=== PATIENT | female | born 1945 | race Caucasian/White ===

== ENCOUNTER 2017-09-03 17:02 | Inpatient (IN) ==
[2017-09-03] MEDS ORDERED: ONDANSETRON 4 MG/2 ML VIAL IV STA (18:25)
[2017-09-03] MEDS ORDERED: HYDROmorphone 2 MG/1 ML VIAL IV STA (18:25)
[2017-09-03] MEDS ORDERED: SODIUM CHLORIDE 0.9% 1,000 ML IV STA (18:25)
[2017-09-03 18:44] LABS: Basophils % 0.3 % (0.0-0.8); Hematocrit 43.3 VOL% (35.7-47.0); Immature Granulocytes % 0.4 %; Immature Granulocytes Absolute 0.05 #; Lymphocytes # 0.5 10*3/uL (1.4-4.0); Mean Corpuscular HGB Conc 34.6 GM/DL (32-36); Mean Corpuscular Hemoglobin 33 PG (27-34); Mean Corpuscular Volume 96.2 FL (87-102); Mean Platelet Volume 9.1 FL (9.6-12.0); Monocytes # 0.6 10*3/uL (0.11-0.8); Monocytes % 4.8 % (1.7-12.7); Neutrophils # 12.1 10*3/uL (1.4-7.4); Neutrophils % 90.5 % (38.7-73.9); Platelet Count 421 T/CUMM (130-400); Red Cell Distribution Width 12.9 % (9.3-17.3); White Blood Count 13.3 T/CUMM (4-12)
[2017-09-03] MEDS ORDERED: HYDROmorphone 2 MG/1 ML VIAL ONE ×2 (18:44→23:26)
[2017-09-03] MEDS ORDERED: ONDANSETRON 4 MG/2 ML VIAL ONE (18:44)
[2017-09-03 19:21] LABS: Band Neutrophils 13 % (0-10); Lymphocytes 5 % (20-55); Segmented Neutrophils 81 % (50-85); Total Cells Counted 100
[2017-09-03 19:22] LABS: Platelet Estimate Increased
[2017-09-03 19:28] LABS: Albumin 3.5 G/DL (3.4-5.0); Bilirubin,Total 0.6 MG/DL (0.2-1.0); Calcium 8.8 MG/DL (8.5-10.1); Osmolality,Calculated 264.7 MOS/KG (273-304); Potassium 3.1 MMOL/L (3.5-5.1)
[2017-09-03] MEDS ORDERED: MEROPENEM 1,000 MG in SODIUM CHLORIDE 0.9% 100 ML IV STA (20:28)
[2017-09-03] MEDS ORDERED: VANCOMYCIN INJ 1,000 MG in SODIUM CHLORIDE 0.9% 250 ML IV STA (20:28)
[2017-09-03] MEDS ORDERED: MORPHINE 4 MG/1 ML VIAL IV STA (20:38)
[2017-09-03] MEDS ORDERED: MORPHINE 4 MG/1 ML VIAL ONE (20:39)
[2017-09-03] MEDS ORDERED: VANCOMYCIN 1,000 MG VIAL ONE (20:42)
[2017-09-03 22:09] LABS: Apearance,Urine CLEAR (Clear); Bilirubin,Urine Negative (Negative); Blood, Urine Small mg/dL (Negative); Glucose,Urine (UA) Negative (Negative); Ketones,Urine 5 mg/dL (Negative); Mucus,Urine Occasional /LPF (Occasional); Nitrite,Urine Negative (Negative); Protein,Urine 30 MG/DL; RBC,Urine 1 /HPF (0-4); Squamous Epithelial Cell,Urine Occasional /HPF (0-10); Urine Color Yellow (Yellow); Urine Specific Gravity > 1.060 (1.001-1.035); Urine Urobilinogen < 2.0 EU/DL (0.2-1.0); WBC,Urine 3 /HPF (0-6)
[2017-09-03] MEDS: LACTATED RINGERS 1,000 ML IV SCH (22:15)
[2017-09-03] MEDS ORDERED: BUPIVACAINE 0.5% 50 ML VIAL ONE (22:58)
[2017-09-03] MEDS ORDERED: ACETAMINOPHEN 325 MG TABLET PO PRN (23:13)
[2017-09-03] MEDS ORDERED: PROPOFOL 200 MG/20 ML VIAL IV ONE (23:25)
[2017-09-03] MEDS ORDERED: SEVOFLURANE 1 UNIT/15 MINUTE INH ONE (23:25)
[2017-09-03] MEDS ORDERED: fentaNYL 100 MCG/2 ML VIAL ONE (23:26)
[2017-09-03] MEDS ORDERED: ePHEDrine 50 MG/ML AMP ONE (23:26)
[2017-09-03] MEDS ORDERED: DEXAMETHASONE 10 MG/1 ML VIAL ONE (23:26)
[2017-09-03] MEDS ORDERED: GLYCOPYRROLATE 0.4 MG/2 ML VIAL ONE ×2 (23:27→23:32)
[2017-09-03] MEDS ORDERED: PHENYLEPHRINE 10 MG/1 ML VIAL IV ONE (23:27)
[2017-09-03] MEDS ORDERED: ACETAMINOPHEN 1,000 MG/100 ML VIAL IV ONE (23:27)
[2017-09-03] MEDS ORDERED: ROCURONIUM 100 MG/10 ML VIAL IV ONE (23:27)
[2017-09-03] MEDS ORDERED: NEOSTIGMINE 10 MG/10 ML VIAL ONE (23:28)
[2017-09-03] MEDS ORDERED: PHENYLEPHRINE 0.5% NASAL SPRAY 15 ML BOTTLE BOTH NARES ONE (23:28)
[2017-09-03] MEDS ORDERED: LIDOCAINE 2% TOP JELLY 5 ML TUBE TOP ONE (23:28)
[2017-09-04 00:24] LABS: Apearance,Urine CLEAR (Clear); Bacteria,Urine Occasional /HPF (Few); Blood, Urine Negative (Negative); Glucose,Urine (UA) Negative (Negative); Granular Casts,Urine 22 /LPF (0-1); Hyaline Casts,Urine 23 /LPF (0-3); Ketones,Urine 20 mg/dL (Negative); Mucus,Urine Occasional /LPF (Occasional); Nitrite,Urine Negative (Negative); Protein,Urine 100 MG/DL; RBC,Urine 3 /HPF (0-4); Squamous Epithelial Cell,Urine Occasional /HPF (0-10); Urine Color Yellow (Yellow); Urine Specific Gravity 1.026 (1.001-1.035); Urine Urobilinogen < 2.0 EU/DL (0.2-1.0); WBC,Urine 1 /HPF (0-6)
[2017-09-04 00:25] LABS: Bilirubin,Urine Moderate mg/dL (Negative)
[2017-09-04] MEDS: LEVOFLOXACIN INJ 750 MG in PREMIX 1 EACH IV SCH (00:30)
[2017-09-04] MEDS: metroNIDAZOLE INJ 500 MG in PREMIX 1 EACH IV SCH ×4 (02:20→23:37)
[2017-09-04] MEDS: LACTATED RINGERS 1,000 ML IV SCH ×3 (04:16→22:16)
[2017-09-04] MEDS: MORPHINE 4 MG/1 ML VIAL IV PRN ×4 (04:22→22:16)
[2017-09-04 08:35] LABS: Basophils % 0.1 % (0.0-0.8); Hematocrit 36.2 VOL% (35.7-47.0); Hemoglobin 12.3 GM/DL (12.0-16.0); Immature Granulocytes % 0.4 %; Immature Granulocytes Absolute 0.03 #; Lymphocytes # 0.6 10*3/uL (1.4-4.0); Lymphocytes % 7.6 % (21.3-54.2); Mean Corpuscular Hemoglobin 33 PG (27-34); Mean Corpuscular Volume 97.8 FL (87-102); Mean Platelet Volume 9.2 FL (9.6-12.0); Monocytes # 0.5 10*3/uL (0.11-0.8); Monocytes % 6.5 % (1.7-12.7); Neutrophils % 85.4 % (38.7-73.9); Platelet Count 333 T/CUMM (130-400); White Blood Count 8.2 T/CUMM (4-12)
[2017-09-04] MEDS: PANTOPRAZOLE 40 MG TABLET PO SCH (08:44)
[2017-09-04 09:15] LABS: Calcium 8.1 MG/DL (8.5-10.1); Potassium 4.5 MMOL/L (3.5-5.1)
[2017-09-04 09:29] LABS: Band Neutrophils 9 % (0-10); Hypochromasia 1+; Lymphocytes 10 % (20-55); Platelet Estimate Adequate; Segmented Neutrophils 77 % (50-85); Total Cells Counted 100
[2017-09-04] MEDS: oxyCODONE/ACETAMINOPHEN 5-325 MG TABLET PO PRN ×2 (12:17→19:59)
[2017-09-04] MEDS: FAMOTIDINE 20 MG/2 ML VIAL IV SCH ×2 (12:18→23:38)
[2017-09-04] MEDS: ENOXAPARIN 40 MG/0.4 ML SYRINGE SUBCUT SCH (16:53)
[2017-09-05] MEDS: oxyCODONE/ACETAMINOPHEN 5-325 MG TABLET PO PRN ×3 (01:55→20:10)
[2017-09-05] MEDS: MORPHINE 4 MG/1 ML VIAL IV PRN ×4 (04:11→22:53)
[2017-09-05] MEDS: LACTATED RINGERS 1,000 ML IV SCH ×2 (07:13→07:21)
[2017-09-05] MEDS: metroNIDAZOLE INJ 500 MG in PREMIX 1 EACH IV SCH ×2 (09:17→17:21)
[2017-09-05] MEDS: PANTOPRAZOLE 40 MG TABLET PO SCH (09:21)
[2017-09-05] MEDS: FAMOTIDINE 20 MG/2 ML VIAL IV SCH (11:41)
[2017-09-05] MEDS: ENOXAPARIN 40 MG/0.4 ML SYRINGE SUBCUT SCH (17:22)
[2017-09-05] MEDS: LEVOFLOXACIN INJ 750 MG in PREMIX 1 EACH IV SCH (22:53)
[2017-09-06] MEDS: FAMOTIDINE 20 MG/2 ML VIAL IV SCH ×2 (00:44→11:19)
[2017-09-06] MEDS: metroNIDAZOLE INJ 500 MG in PREMIX 1 EACH IV SCH ×3 (00:44→16:14)
[2017-09-06] MEDS: oxyCODONE/ACETAMINOPHEN 5-325 MG TABLET PO PRN ×4 (02:22→22:22)
[2017-09-06] MEDS: LACTATED RINGERS 1,000 ML IV SCH ×3 (03:11→12:50)
[2017-09-06 04:53] LABS: Basophils % 0.2 % (0.0-0.8); Eosinophils % 0.2 % (0.00-10.9); Hematocrit 27.9 VOL% (35.7-47.0); Hemoglobin 9.6 GM/DL (12.0-16.0); Immature Granulocytes % 0.6 %; Immature Granulocytes Absolute 0.06 #; Lymphocytes # 0.7 10*3/uL (1.4-4.0); Lymphocytes % 7.5 % (21.3-54.2); Mean Corpuscular HGB Conc 34.4 GM/DL (32-36); Mean Corpuscular Hemoglobin 33 PG (27-34); Mean Corpuscular Volume 96.2 FL (87-102); Mean Platelet Volume 9.6 FL (9.6-12.0); Monocytes # 0.4 10*3/uL (0.11-0.8); Monocytes % 4.2 % (1.7-12.7); Neutrophils # 8.3 10*3/uL (1.4-7.4); Neutrophils % 87.3 % (38.7-73.9); Platelet Count 315 T/CUMM (130-400); White Blood Count 9.5 T/CUMM (4-12)
[2017-09-06] MEDS: MORPHINE 4 MG/1 ML VIAL IV PRN ×2 (04:53→11:19)
[2017-09-06 05:17] LABS: Calcium 7.6 MG/DL (8.5-10.1)
[2017-09-06 05:18] LABS: Osmolality,Calculated 267.1 MOS/KG (273-304); Potassium 3.5 MMOL/L (3.5-5.1)
[2017-09-06] MEDS: ONDANSETRON 4 MG/2 ML VIAL IV PRN (07:30)
[2017-09-06] MEDS: PANTOPRAZOLE 40 MG TABLET PO SCH (09:08)
[2017-09-06] MEDS: CLARITHROMYCIN 500 MG TABLET PO SCH ×2 (11:18→21:36)
[2017-09-06] MEDS ORDERED: HYDROmorphone 2 MG/1 ML VIAL IV PRN (12:15)
[2017-09-06] MEDS: ENOXAPARIN 40 MG/0.4 ML SYRINGE SUBCUT SCH (16:15)
[2017-09-07] MEDS: FAMOTIDINE 20 MG/2 ML VIAL IV SCH ×2 (00:33→11:55)
[2017-09-07] MEDS: metroNIDAZOLE INJ 500 MG in PREMIX 1 EACH IV SCH ×3 (00:34→16:01)
[2017-09-07] MEDS: LACTATED RINGERS 1,000 ML IV SCH (00:35)
[2017-09-07] MEDS: oxyCODONE/ACETAMINOPHEN 5-325 MG TABLET PO PRN ×3 (04:25→19:11)
[2017-09-07] MEDS: CLARITHROMYCIN 500 MG TABLET PO SCH ×2 (09:17→21:16)
[2017-09-07] MEDS: HYDROmorphone 2 MG/1 ML VIAL IV PRN ×3 (09:17→21:19)
[2017-09-07] MEDS: PANTOPRAZOLE 40 MG TABLET PO SCH (09:17)
[2017-09-07] MEDS: ONDANSETRON 4 MG/2 ML VIAL IV PRN (10:05)
[2017-09-07] MEDS: ENOXAPARIN 40 MG/0.4 ML SYRINGE SUBCUT SCH (16:52)
[2017-09-07] MEDS: MICAFUNGIN 100 MG in SODIUM CHLORIDE 0.9% 100 ML IV SCH ×2 (18:31→18:49)
[2017-09-08] MEDS: FAMOTIDINE 20 MG/2 ML VIAL IV SCH ×2 (00:19→12:50)
[2017-09-08] MEDS: LEVOFLOXACIN INJ 750 MG in PREMIX 1 EACH IV SCH (00:20)
[2017-09-08] MEDS: metroNIDAZOLE INJ 500 MG in PREMIX 1 EACH IV SCH ×3 (01:28→16:40)
[2017-09-08] MEDS: oxyCODONE/ACETAMINOPHEN 5-325 MG TABLET PO PRN ×3 (01:42→17:11)
[2017-09-08] MEDS: HYDROmorphone 2 MG/1 ML VIAL IV PRN (04:25)
[2017-09-08] MEDS: MORPHINE 4 MG/1 ML VIAL IV SCH ×5 (07:12→23:01)
[2017-09-08] MEDS: PANTOPRAZOLE 40 MG TABLET PO SCH (09:32)
[2017-09-08] MEDS: CLARITHROMYCIN 500 MG TABLET PO SCH ×2 (09:32→20:45)
[2017-09-08] MEDS: ONDANSETRON 4 MG/2 ML VIAL IV PRN (10:25)
[2017-09-08] MEDS ORDERED: BISACODYL 10 MG SUPP RECTAL ONE (11:40)
[2017-09-08] MEDS: ENOXAPARIN 40 MG/0.4 ML SYRINGE SUBCUT SCH (16:40)
[2017-09-08] MEDS: MICAFUNGIN 100 MG in SODIUM CHLORIDE 0.9% 100 ML IV SCH (17:45)
[2017-09-09] MEDS: FAMOTIDINE 20 MG/2 ML VIAL IV SCH ×2 (00:21→11:57)
[2017-09-09] MEDS: oxyCODONE/ACETAMINOPHEN 5-325 MG TABLET PO PRN (00:22)
[2017-09-09] MEDS: metroNIDAZOLE INJ 500 MG in PREMIX 1 EACH IV SCH ×3 (00:22→16:06)
[2017-09-09] MEDS: MORPHINE 4 MG/1 ML VIAL IV SCH ×5 (03:57→21:11)
[2017-09-09 04:41] LABS: Basophils % 0.3 % (0.0-0.8); Eosinophils # 0.2 10*3/uL (0.0-0.87); Eosinophils % 1.9 % (0.00-10.9); Hematocrit 32.5 VOL% (35.7-47.0); Hemoglobin 11.6 GM/DL (12.0-16.0); Immature Granulocytes % 0.6 %; Immature Granulocytes Absolute 0.05 #; Lymphocytes # 1.1 10*3/uL (1.4-4.0); Lymphocytes % 12.9 % (21.3-54.2); Mean Corpuscular HGB Conc 35.7 GM/DL (32-36); Mean Corpuscular Hemoglobin 34 PG (27-34); Mean Corpuscular Volume 93.9 FL (87-102); Mean Platelet Volume 9.1 FL (9.6-12.0); Neutrophils # 6.4 10*3/uL (1.4-7.4); Neutrophils % 73.3 % (38.7-73.9); Platelet Count 407 T/CUMM (130-400); Red Blood Count 3.46 MC/CUMM (3.8-5.5); Red Cell Distribution Width 12.8 % (9.3-17.3); White Blood Count 8.8 T/CUMM (4-12)
[2017-09-09 05:16] LABS: Calcium 7.7 MG/DL (8.5-10.1); Osmolality,Calculated 267.1 MOS/KG (273-304); Potassium 2.7 MMOL/L (3.5-5.1)
[2017-09-09] MEDS: PANTOPRAZOLE 40 MG TABLET PO SCH (08:38)
[2017-09-09] MEDS: CLARITHROMYCIN 500 MG TABLET PO SCH ×2 (08:38→21:11)
[2017-09-09] MEDS: POTASSIUM CHLORIDE RIDER 10 MEQ in PREMIX 1 EACH IV PRN ×2 (11:33→12:53)
[2017-09-09] MEDS ORDERED: POTASSIUM CHLORIDE 20 MEQ TABLET PO ONE (13:19)
[2017-09-09] MEDS: ENOXAPARIN 40 MG/0.4 ML SYRINGE SUBCUT SCH (16:06)
[2017-09-09] MEDS: MICAFUNGIN 100 MG in SODIUM CHLORIDE 0.9% 100 ML IV SCH (18:17)
[2017-09-09 19:08] LABS: Potassium 3.3 MMOL/L (3.5-5.1)
[2017-09-09] MEDS: LEVOFLOXACIN INJ 750 MG in PREMIX 1 EACH IV SCH (23:13)
[2017-09-10] MEDS: FAMOTIDINE 20 MG/2 ML VIAL IV SCH ×2 (00:43→12:01)
[2017-09-10] MEDS: metroNIDAZOLE INJ 500 MG in PREMIX 1 EACH IV SCH ×3 (00:44→17:21)
[2017-09-10] MEDS: MORPHINE 4 MG/1 ML VIAL IV SCH ×5 (00:44→16:54)
[2017-09-10] MEDS: CLARITHROMYCIN 500 MG TABLET PO SCH (08:31)
[2017-09-10] MEDS: PANTOPRAZOLE 40 MG TABLET PO SCH (08:31)
[2017-09-10 17:12] VITALS: BP 148/88
[2017-09-10] MEDS: ENOXAPARIN 40 MG/0.4 ML SYRINGE SUBCUT SCH (17:21)
[2017-09-10] MEDS: MICAFUNGIN 100 MG in SODIUM CHLORIDE 0.9% 100 ML IV SCH (17:47)
== END 2017-09-10 18:34 | disposition home health service (06) | DRG 329 ==
LOC: N.ED 17:02 → N.3E 22:00 → N.EDINP 22:09 → N.3E 23:20
PROVIDERS: ADMIT Surgery; ATTEND Surgery

== ENCOUNTER 2019-03-24 17:56 | Observation (INO) ==
[2019-03-24] MEDS ORDERED: SODIUM CHLORIDE 0.9% 1,000 ML IV STA (18:18)
[2019-03-24] MEDS ORDERED: ONDANSETRON 4 MG/2 ML VIAL IV STA (18:18)
[2019-03-24] MEDS ORDERED: DICYCLOMINE 20 MG/2 ML AMP IM ONE (18:18)
[2019-03-24] MEDS ORDERED: PANTOPRAZOLE 40 MG VIAL IV STA (18:18)
[2019-03-24] MEDS ORDERED: METOCLOPRAMIDE 10 MG/2 ML VIAL IV STA (18:18)
[2019-03-24 19:04] LABS: Basophils # 0.1 10*3/uL (0.0-0.2); Basophils % 0.3 % (0.0-0.8); Eosinophils % 0.1 % (0.00-10.9); Hematocrit 38.3 VOL% (35.7-47.0); Immature Granulocytes % 0.7 %; Immature Granulocytes Absolute 0.12 #; Lymphocytes # 1.6 10*3/uL (1.4-4.0); Lymphocytes % 8.9 % (21.3-54.2); Mean Corpuscular HGB Conc 33.9 GM/DL (32-36); Mean Corpuscular Volume 97.7 FL (87-102); Mean Platelet Volume 9.1 FL (9.6-12.0); Monocytes % 4.7 % (1.7-12.7); Neutrophils % 85.3 % (38.7-73.9); Platelet Count 373 T/CUMM (130-400); Red Blood Count 3.92 MC/CUMM (3.8-5.5); Red Cell Distribution Width 13.3 % (9.3-17.3); White Blood Count 17.7 T/CUMM (4-12)
[2019-03-24 19:29] LABS: Alanine Aminotransferase 23 U/L (13-56); Albumin 3.5 G/DL (3.4-5.0); Alkaline Phosphatase 110 U/L (45-117); Amylase 34 U/L (25-115); Aspartate Amino Transferase 21 U/L (0-37); Blood Urea Nitrogen 50 MG/DL (7-18); Calcium 8.8 MG/DL (8.5-10.1); Estimated Glom Filtration Rate 38 ML/MIN; Glucose 98 MG/DL (74-106); Osmolality,Calculated 280.2 MOS/KG (273-304); Total Protein 7.3 G/DL (6.4-8.3); Troponin I < 0.015 NG/ML (0.00-0.045)
[2019-03-24 19:49] LABS: Barbiturates Screen,Urine Negative (Negative); Benzodiazepines Screen,Urine Negative (Negative); Cannabinoid Screen,Urine Negative (Negative); Opiate Screen,Urine Negative (Negative); Phencyclidine Screen,Urine Negative (Negative)
[2019-03-24 19:53] LABS: Apearance,Urine CLEAR (Clear); Bacteria,Urine Few /HPF (Few); Bilirubin,Urine Negative (Negative); Blood, Urine Small mg/dL (Negative); Glucose,Urine (UA) Negative (Negative); Hyaline Casts,Urine 3 /LPF (0-3); Ketones,Urine 5 mg/dL (Negative); Mucus,Urine Occasional /LPF (Occasional); Nitrite,Urine Negative (Negative); Protein,Urine Negative; RBC,Urine 3 /HPF (0-4); Squamous Epithelial Cell,Urine Occasional /HPF (0-10); Urine Color Yellow (Yellow); Urine Specific Gravity 1.035 (1.001-1.035); Urine Urobilinogen < 2.0 EU/DL (0.2-1.0); WBC,Urine 17 /HPF (0-6)
[2019-03-24] MEDS ORDERED: LEVOFLOXACIN INJ 750 MG in PREMIX 1 EACH IV STA (19:56)
[2019-03-24] MEDS ORDERED: POTASSIUM BICARB EFFERVESCENT 25 MEQ TABLET PO ONE (19:56)
[2019-03-24] MEDS: traMADol 50 MG TABLET PO PRN (23:20)
[2019-03-24] MEDS: SODIUM CHLORIDE 0.9% 1,000 ML IV SCH (23:29)
[2019-03-24] MEDS: metroNIDAZOLE INJ 500 MG in PREMIX 1 EACH IV SCH (23:30)
[2019-03-25] MEDS: LORazepam 1 MG TABLET PO SCH ×2 (00:07→20:29)
[2019-03-25 06:03] LABS: Basophils % 0.4 % (0.0-0.8); Eosinophils # 0.1 10*3/uL (0.0-0.87); Eosinophils % 0.6 % (0.00-10.9); Hematocrit 30.1 VOL% (35.7-47.0); Hemoglobin 9.7 GM/DL (12.0-16.0); Immature Granulocytes % 0.4 %; Immature Granulocytes Absolute 0.04 #; Lymphocytes # 1.6 10*3/uL (1.4-4.0); Lymphocytes % 16.9 % (21.3-54.2); Mean Corpuscular HGB Conc 32.2 GM/DL (32-36); Monocytes % 7.5 % (1.7-12.7); Neutrophils % 74.2 % (38.7-73.9); Platelet Count 265 T/CUMM (130-400); Red Blood Count 3.01 MC/CUMM (3.8-5.5); Red Cell Distribution Width 13.7 % (9.3-17.3); White Blood Count 9.7 T/CUMM (4-12)
[2019-03-25] MEDS: metroNIDAZOLE INJ 500 MG in PREMIX 1 EACH IV SCH ×3 (06:20→22:29)
[2019-03-25] MEDS: traMADol 50 MG TABLET PO PRN ×2 (06:27→20:29)
[2019-03-25 06:30] LABS: Osmolality,Calculated 281.7 MOS/KG (273-304)
[2019-03-25] MEDS: PANTOPRAZOLE 40 MG VIAL IV SCH (08:26)
[2019-03-25] MEDS: SODIUM CHLORIDE 0.9% 1,000 ML IV SCH (14:44)
[2019-03-25] MEDS ORDERED: DOCUSATE SODIUM 100 MG CAPSULE PO PRN (15:23)
[2019-03-25 15:50] LABS: Hematocrit 28.9 VOL% (35.7-47.0); Hemoglobin 9.6 GM/DL (12.0-16.0)
[2019-03-25 21:44] LABS: Hematocrit 28.3 VOL% (35.7-47.0); Hemoglobin 9.3 GM/DL (12.0-16.0)
[2019-03-26] MEDS: PANTOPRAZOLE 40 MG VIAL IV SCH (08:02)
[2019-03-26] MEDS: traMADol 50 MG TABLET PO PRN (08:02)
[2019-03-26] MEDS: metroNIDAZOLE INJ 500 MG in PREMIX 1 EACH IV SCH ×2 (08:03→17:33)
[2019-03-26] MEDS: POLYETHYLENE GLYCOL POWDER 17 GM PACK PO SCH (08:03)
[2019-03-26] MEDS ORDERED: POLYETHYLENE GLYCOL 3350/ELECTROLYTES 4,000 ML BOTTLE PO ONE ×2 (14:57→18:00)
[2019-03-26] MEDS: amLODIPine 10 MG TABLET PO SCH (20:55)
[2019-03-26] MEDS: LORazepam 1 MG TABLET PO SCH (20:55)
[2019-03-26] MEDS ORDERED: LEVOFLOXACIN INJ 750 MG in PREMIX 1 EACH IV SCH (21:00)
[2019-03-27] MEDS: metroNIDAZOLE INJ 500 MG in PREMIX 1 EACH IV SCH ×2 (01:16→08:48)
[2019-03-27] MEDS: traMADol 50 MG TABLET PO PRN ×3 (04:20→21:48)
[2019-03-27] MEDS: PANTOPRAZOLE 40 MG VIAL IV SCH (08:43)
[2019-03-27] MEDS: POLYETHYLENE GLYCOL POWDER 17 GM PACK PO SCH (08:49)
[2019-03-27] MEDS: LORazepam 1 MG TABLET PO SCH (21:48)
[2019-03-27] MEDS: amLODIPine 10 MG TABLET PO SCH (21:49)
[2019-03-28 05:22] LABS: Basophils % 0.7 % (0.0-0.8); Eosinophils # 0.1 10*3/uL (0.0-0.87); Eosinophils % 2.4 % (0.00-10.9); Hematocrit 30.8 VOL% (35.7-47.0); Hemoglobin 10.4 GM/DL (12.0-16.0); Immature Granulocytes % 0.4 %; Immature Granulocytes Absolute 0.02 #; Lymphocytes # 1.1 10*3/uL (1.4-4.0); Lymphocytes % 20.7 % (21.3-54.2); Mean Corpuscular HGB Conc 33.8 GM/DL (32-36); Mean Corpuscular Volume 96.9 FL (87-102); Mean Platelet Volume 9.1 FL (9.6-12.0); Monocytes % 12.3 % (1.7-12.7); Neutrophils % 63.5 % (38.7-73.9); Platelet Count 295 T/CUMM (130-400); Red Blood Count 3.18 MC/CUMM (3.8-5.5); Red Cell Distribution Width 13.1 % (9.3-17.3); White Blood Count 5.5 T/CUMM (4-12)
[2019-03-28 05:35] LABS: Calcium 8.3 MG/DL (8.5-10.1)
[2019-03-28] MEDS ORDERED: LACTATED RINGERS 1,000 ML IV SCH (08:00)
[2019-03-28] MEDS: PANTOPRAZOLE 40 MG VIAL IV SCH (08:38)
[2019-03-28] MEDS: POLYETHYLENE GLYCOL POWDER 17 GM PACK PO SCH (08:41)
[2019-03-28] MEDS ORDERED: PROPOFOL 200 MG/20 ML VIAL IV ONE (09:30)
[2019-03-28] MEDS ORDERED: LIDOCAINE 2% 5 ML VIAL ONE (09:30)
[2019-03-28 17:58] VITALS: BP 125/77
== END 2019-03-28 17:50 | disposition home or self-care (01) ==
LOC: N.EDINP 17:56 → N.ED 17:56 → SUATTDRO 21:20 → N.2W 22:34 → N.3E 23:33
PROVIDERS: ADMIT Internal Medicine; ATTEND Internal Medicine

== ENCOUNTER 2019-10-05 13:54 | Inpatient (IN) ==
[~2019-10-05 13:54] MED LIST: LIDOCAINE 2% 5 ML VIAL ONE; propofoL 200 MG/20 ML VIAL IV ONE
[2019-10-05] MEDS ORDERED: SODIUM CHLORIDE 0.9% 1,000 ML IV STA (15:05)
[2019-10-05] MEDS ORDERED: ONDANSETRON 4 MG/2 ML VIAL IV STA (15:05)
[2019-10-05 15:33] LABS: Basophils % 0.4 % (0.0-0.8); Eosinophils % 0.1 % (0.00-10.9); Hematocrit 38.8 VOL% (35.7-47.0); Hemoglobin 11.7 GM/DL (12.0-16.0); Immature Granulocytes % 0.4 %; Immature Granulocytes Absolute 0.04 #; Lymphocytes # 1.6 10*3/uL (1.4-4.0); Lymphocytes % 15.6 % (21.3-54.2); Mean Corpuscular HGB Conc 30.2 GM/DL (32-36); Mean Corpuscular Volume 84.5 FL (87-102); Mean Platelet Volume 9.4 FL (9.6-12.0); Monocytes % 7.1 % (1.7-12.7); Neutrophils % 76.4 % (38.7-73.9); Platelet Count 642 T/CUMM (130-400); Red Blood Count 4.59 MC/CUMM (3.8-5.5); Red Cell Distribution Width 16.3 % (9.3-17.3); White Blood Count 10.5 T/CUMM (4-12)
[2019-10-05 15:58] LABS: Apearance,Urine CLEAR (Clear); Bacteria,Urine Many /HPF (Few); Bilirubin,Urine Negative (Negative); Blood, Urine Negative (Negative); Glucose,Urine (UA) Negative (Negative); Hyaline Casts,Urine 5 /LPF (0-3); Ketones,Urine Negative (Negative); Mucus,Urine Occasional /LPF (Occasional); Nitrite,Urine Negative (Negative); Protein,Urine Negative; RBC,Urine <1 /HPF (0-4); Urine Color Yellow (Yellow); Urine Specific Gravity 1.023 (1.001-1.035); Urine Urobilinogen < 2.0 EU/DL (0.2-1.0); WBC,Urine 3 /HPF (0-6)
[2019-10-05 16:01] LABS: Alanine Aminotransferase 12 U/L (13-56); Albumin 3.5 G/DL (3.4-5.0); Alkaline Phosphatase 95 U/L (45-117); Aspartate Amino Transferase 18 U/L (0-37); Bilirubin,Total < 0.39 MG/DL (0.2-1.0); Blood Urea Nitrogen 24 MG/DL (7-18); Estimated Glom Filtration Rate 37 ML/MIN; Glucose 110 MG/DL (74-106); Osmolality,Calculated 268.5 MOS/KG (273-304); Total Protein 8.5 G/DL (6.4-8.3)
[2019-10-05] MEDS ORDERED: POTASSIUM CHLORIDE 20 MEQ TABLET PO STA (16:36)
[2019-10-05] MEDS ORDERED: ONDANSETRON 4 MG/2 ML VIAL IV PRN (17:37)
[2019-10-05] MEDS ORDERED: DEXTROSE 10% 250 ML BAG IV PRN (17:37)
[2019-10-05] MEDS ORDERED: GLUCAGON 1 MG VIAL IM PRN (17:37)
[2019-10-05] MEDS ORDERED: MAGNESIUM SULF RIDER 2 GM in PREMIX 1 EACH IV STA (17:45)
[2019-10-05] MEDS ORDERED: POTASSIUM CHLORIDE RIDER 20 MEQ in PREMIX 1 EACH IV PRN (17:52)
[2019-10-05] MEDS: traMADol 50 MG TABLET PO PRN ×2 (19:31→22:45)
[2019-10-05] MEDS: LORazepam 1 MG TABLET PO SCH (22:45)
[2019-10-05] MEDS: ENOXAPARIN 30 MG/0.3 ML SYRINGE SUBCUT SCH (22:45)
[2019-10-05] MEDS: POTASSIUM CHLORIDE 20 MEQ TABLET PO SCH (22:45)
[2019-10-05] MEDS: THIAMINE 200 MG/2 ML VIAL IV SCH (22:46)
[2019-10-05] MEDS: DEXT 5% NACL 0.45% KCL 40 MEQ 40 MEQ/1,000 ML BAG IV SCH (22:53)
[2019-10-06] MEDS: HYDROmorphone 2 MG/1 ML VIAL IV PRN ×2 (01:18→08:47)
[2019-10-06 06:25] LABS: Basophils % 0.4 % (0.0-0.8); Eosinophils % 0.2 % (0.00-10.9); Hematocrit 30.8 VOL% (35.7-47.0); Hemoglobin 9.3 GM/DL (12.0-16.0); Immature Granulocytes % 0.5 %; Immature Granulocytes Absolute 0.05 #; Lymphocytes # 1.9 10*3/uL (1.4-4.0); Lymphocytes % 19.4 % (21.3-54.2); Mean Corpuscular HGB Conc 30.2 GM/DL (32-36); Mean Corpuscular Volume 85.3 FL (87-102); Mean Platelet Volume 10.2 FL (9.6-12.0); Monocytes % 8.9 % (1.7-12.7); Neutrophils % 70.6 % (38.7-73.9); Platelet Count 488 T/CUMM (130-400); Red Blood Count 3.61 MC/CUMM (3.8-5.5); Red Cell Distribution Width 16.6 % (9.3-17.3); White Blood Count 9.9 T/CUMM (4-12)
[2019-10-06 06:27] LABS: Basophils % 0.4 % (0.0-0.8); Eosinophils % 0.3 % (0.00-10.9); Hematocrit 30.5 VOL% (35.7-47.0); Hemoglobin 9.2 GM/DL (12.0-16.0); Immature Granulocytes % 0.2 %; Immature Granulocytes Absolute 0.02 #; Lymphocytes # 1.9 10*3/uL (1.4-4.0); Lymphocytes % 19.8 % (21.3-54.2); Mean Corpuscular HGB Conc 30.2 GM/DL (32-36); Mean Corpuscular Volume 83.8 FL (87-102); Mean Platelet Volume 9.8 FL (9.6-12.0); Monocytes % 8.9 % (1.7-12.7); Neutrophils % 70.4 % (38.7-73.9); Platelet Count 491 T/CUMM (130-400); Red Blood Count 3.64 MC/CUMM (3.8-5.5); Red Cell Distribution Width 16.4 % (9.3-17.3); White Blood Count 9.5 T/CUMM (4-12)
[2019-10-06 06:41] LABS: % Iron Saturation 5.6 % (18-50); Ferritin 8.7 ng/ml (8-252)
[2019-10-06 06:47] LABS: Calcium 8.2 MG/DL (8.5-10.1); Osmolality,Calculated 266.4 MOS/KG (273-304); Thyroid Stimulating Hormone 1.04 uIU/ml (0.358-3.74)
[2019-10-06 06:49] LABS: Total Protein 6.6 G/DL (6.4-8.3)
[2019-10-06 06:49] LABS: Folate 7.8 NG/ML (5.4-24.0); Vitamin B12 306 PG/ML (211-911)
[2019-10-06 07:27] LABS: HIV Antigen/Antibody Result Nonreactive (Nonreactive)
[2019-10-06 07:47] LABS: Sedimentation Rate-Westergren 52 MM/HR (0-30)
[2019-10-06] MEDS: THIAMINE 200 MG/2 ML VIAL IV SCH ×2 (08:48→21:29)
[2019-10-06] MEDS: PANTOPRAZOLE 40 MG VIAL IV SCH (08:48)
[2019-10-06] MEDS: DEXT 5% NACL 0.45% KCL 40 MEQ 40 MEQ/1,000 ML BAG IV SCH ×2 (08:49→21:36)
[2019-10-06] MEDS: POTASSIUM CHLORIDE 20 MEQ TABLET PO SCH ×3 (08:49→21:36)
[2019-10-06] MEDS: CHOLECALCIFEROL 1,000 UNIT TABLET PO SCH (09:00)
[2019-10-06] MEDS ORDERED: IRON SUCROSE 300 MG in SODIUM CHLORIDE 0.9% 100 ML IV ONE (09:30)
[2019-10-06 10:18] LABS: Immunoglobulin A (Chem) 317 MG/DL (70-400); Immunoglobulin G (Chem) 856 MG/DL (700-1600); Immunoglobulin M (Chem) 53 MG/DL (40-230); Total Protein (Chem) 6.6 G/DL (6.4-8.3)
[2019-10-06 11:24] LABS: Albumin (SPE) 3.8 G/DL (3.2-5.3); Albumin (SPE) Rel % 57.7 %; Alpha 1 (SPE) 0.2 G/DL (0.1-0.4); Alpha 1 (SPE) Rel % 3.5 %; Alpha 2 (SPE) 0.9 G/DL (0.4-1.0); Alpha 2 (SPE) Rel % 13.7 %; Beta (SPE) 0.8 G/DL (0.5-1.1); Beta (SPE) Rel % 12.3 %; Gamma (SPE) 0.8 G/DL (0.7-1.7); Gamma (SPE) Rel % 12.8 %
[2019-10-06] MEDS: ENOXAPARIN 30 MG/0.3 ML SYRINGE SUBCUT SCH (21:35)
[2019-10-06] MEDS: LORazepam 1 MG TABLET PO SCH (22:15)
[2019-10-07 07:46] LABS: Basophils % 0.3 % (0.0-0.8); Eosinophils # 0.1 10*3/uL (0.0-0.87); Eosinophils % 1.2 % (0.00-10.9); Hematocrit 28.3 VOL% (35.7-47.0); Hemoglobin 8.4 GM/DL (12.0-16.0); Immature Granulocytes % 0.3 %; Immature Granulocytes Absolute 0.02 #; Lymphocytes # 1.1 10*3/uL (1.4-4.0); Lymphocytes % 19.5 % (21.3-54.2); Mean Corpuscular HGB Conc 29.7 GM/DL (32-36); Mean Corpuscular Volume 85.2 FL (87-102); Mean Platelet Volume 9.5 FL (9.6-12.0); Monocytes % 10.3 % (1.7-12.7); Neutrophils % 68.4 % (38.7-73.9); Platelet Count 423 T/CUMM (130-400); Red Blood Count 3.32 MC/CUMM (3.8-5.5); Red Cell Distribution Width 16.5 % (9.3-17.3); White Blood Count 5.8 T/CUMM (4-12)
[2019-10-07 07:54] LABS: Osmolality,Calculated 265.2 MOS/KG (273-304)
[2019-10-07] MEDS: POTASSIUM CHLORIDE 20 MEQ TABLET PO SCH ×3 (09:38→21:03)
[2019-10-07] MEDS: CHOLECALCIFEROL 1,000 UNIT TABLET PO SCH (09:38)
[2019-10-07] MEDS: PANTOPRAZOLE 40 MG VIAL IV SCH (09:38)
[2019-10-07] MEDS: THIAMINE 200 MG/2 ML VIAL IV SCH ×2 (09:39→21:02)
[2019-10-07] MEDS: DEXT 5% NACL 0.45% KCL 40 MEQ 40 MEQ/1,000 ML BAG IV SCH ×2 (09:54→12:48)
[2019-10-07] MEDS: traMADol 50 MG TABLET PO PRN ×2 (09:57→16:47)
[2019-10-07] MEDS: HYDROmorphone 2 MG/1 ML VIAL IV PRN (21:02)
[2019-10-07] MEDS: LORazepam 1 MG TABLET PO SCH (21:03)
[2019-10-07] MEDS: ENOXAPARIN 30 MG/0.3 ML SYRINGE SUBCUT SCH (21:03)
[2019-10-08] MEDS: DEXT 5% NACL 0.45% KCL 40 MEQ 40 MEQ/1,000 ML BAG IV SCH ×2 (01:24→14:08)
[2019-10-08] MEDS: HYDROmorphone 2 MG/1 ML VIAL IV PRN (02:33)
[2019-10-08 03:43] LABS: Basophils % 0.5 % (0.0-0.8); Eosinophils # 0.1 10*3/uL (0.0-0.87); Eosinophils % 1.8 % (0.00-10.9); Hematocrit 28.2 VOL% (35.7-47.0); Immature Granulocytes % 0.3 %; Immature Granulocytes Absolute 0.02 #; Lymphocytes # 1.4 10*3/uL (1.4-4.0); Lymphocytes % 23.6 % (21.3-54.2); Mean Corpuscular HGB Conc 28.4 GM/DL (32-36); Mean Corpuscular Volume 88.4 FL (87-102); Mean Platelet Volume 9.8 FL (9.6-12.0); Monocytes % 11.4 % (1.7-12.7); Neutrophils % 62.4 % (38.7-73.9); Platelet Count 393 T/CUMM (130-400); Red Blood Count 3.19 MC/CUMM (3.8-5.5); Red Cell Distribution Width 16.3 % (9.3-17.3)
[2019-10-08 04:00] LABS: Calcium 7.7 MG/DL (8.5-10.1); Osmolality,Calculated 266.1 MOS/KG (273-304)
[2019-10-08 05:14] LABS: Anisocytosis 1+; Platelet Estimate Normal
[2019-10-08] MEDS: traMADol 50 MG TABLET PO PRN ×3 (07:52→21:29)
[2019-10-08] MEDS: CHOLECALCIFEROL 1,000 UNIT TABLET PO SCH (09:08)
[2019-10-08] MEDS: POTASSIUM CHLORIDE 20 MEQ TABLET PO SCH ×3 (09:09→21:01)
[2019-10-08] MEDS: PANTOPRAZOLE 40 MG VIAL IV SCH (09:09)
[2019-10-08] MEDS: THIAMINE 200 MG/2 ML VIAL IV SCH ×2 (09:09→21:01)
[2019-10-08] MEDS ORDERED: BISACODYL 5 MG TABLET PO ONE (12:00)
[2019-10-08] MEDS ORDERED: POLYETHYLENE GLYCOL POWDER 255 GM BOTTLE PO ONE (16:00)
[2019-10-08] MEDS: ENOXAPARIN 30 MG/0.3 ML SYRINGE SUBCUT SCH (21:01)
[2019-10-08] MEDS: LORazepam 1 MG TABLET PO SCH (21:01)
[2019-10-09] MEDS: DEXT 5% NACL 0.45% KCL 40 MEQ 40 MEQ/1,000 ML BAG IV SCH ×2 (00:44→03:38)
[2019-10-09 05:43] LABS: Basophils % 0.3 % (0.0-0.8); Eosinophils # 0.1 10*3/uL (0.0-0.87); Eosinophils % 1.3 % (0.00-10.9); Hematocrit 28.3 VOL% (35.7-47.0); Hemoglobin 8.2 GM/DL (12.0-16.0); Immature Granulocytes % 0.5 %; Immature Granulocytes Absolute 0.03 #; Lymphocytes # 1.2 10*3/uL (1.4-4.0); Lymphocytes % 20.7 % (21.3-54.2); Mean Corpuscular Volume 87.3 FL (87-102); Mean Platelet Volume 9.5 FL (9.6-12.0); Monocytes % 12.1 % (1.7-12.7); Neutrophils % 65.1 % (38.7-73.9); Platelet Count 401 T/CUMM (130-400); Red Blood Count 3.24 MC/CUMM (3.8-5.5); Red Cell Distribution Width 16.5 % (9.3-17.3); White Blood Count 5.9 T/CUMM (4-12)
[2019-10-09] MEDS ORDERED: MAGNESIUM CITRATE 300 ML BOTTLE PO ONE (06:00)
[2019-10-09 06:02] LABS: Calcium 8.1 MG/DL (8.5-10.1)
[2019-10-09] MEDS: traMADol 50 MG TABLET PO PRN (09:24)
[2019-10-09] MEDS: PANTOPRAZOLE 40 MG VIAL IV SCH (09:26)
[2019-10-09] MEDS: THIAMINE 200 MG/2 ML VIAL IV SCH ×2 (09:28→21:45)
[2019-10-09 11:02] LABS: Hemoglobin A1 (Alkaline) 97.7 % (96.5-98.5); Hemoglobin A2 (Alkaline) 2.3 % (1.5-3.5)
[2019-10-09] MEDS: POTASSIUM CHLORIDE 20 MEQ TABLET PO SCH ×3 (14:18→21:44)
[2019-10-09] MEDS: CHOLECALCIFEROL 1,000 UNIT TABLET PO SCH (14:19)
[2019-10-09] MEDS: HYDROmorphone 2 MG/1 ML VIAL IV PRN (14:19)
[2019-10-09] MEDS: ENOXAPARIN 30 MG/0.3 ML SYRINGE SUBCUT SCH (21:44)
[2019-10-09] MEDS: LORazepam 1 MG TABLET PO SCH (21:46)
[2019-10-09 23:01] LABS: IgA Serum (MAYO) 321 mg/dL (61 - 356)
[2019-10-10] MEDS: traMADol 50 MG TABLET PO PRN ×2 (00:22→08:17)
[2019-10-10 03:05] LABS: Basophils % 0.5 % (0.0-0.8); Eosinophils # 0.1 10*3/uL (0.0-0.87); Eosinophils % 1.4 % (0.00-10.9); Hematocrit 28.9 VOL% (35.7-47.0); Hemoglobin 8.3 GM/DL (12.0-16.0); Immature Granulocytes % 0.5 %; Immature Granulocytes Absolute 0.03 #; Lymphocytes # 1.1 10*3/uL (1.4-4.0); Lymphocytes % 17.4 % (21.3-54.2); Mean Corpuscular HGB Conc 28.7 GM/DL (32-36); Mean Platelet Volume 9.2 FL (9.6-12.0); Monocytes % 10.3 % (1.7-12.7); Neutrophils % 69.9 % (38.7-73.9); Platelet Count 391 T/CUMM (130-400); Red Blood Count 3.32 MC/CUMM (3.8-5.5); Red Cell Distribution Width 16.7 % (9.3-17.3); White Blood Count 6.3 T/CUMM (4-12)
[2019-10-10 03:20] LABS: Osmolality,Calculated 257.7 MOS/KG (273-304)
[2019-10-10 07:44] VITALS: BP 135/80
[2019-10-10] MEDS: HYDROmorphone 2 MG/1 ML VIAL IV PRN (08:03)
[2019-10-10] MEDS: PANTOPRAZOLE 40 MG VIAL IV SCH (08:04)
[2019-10-10] MEDS: THIAMINE 200 MG/2 ML VIAL IV SCH (08:04)
[2019-10-10] MEDS: POTASSIUM CHLORIDE 20 MEQ TABLET PO SCH (08:04)
[2019-10-10] MEDS: CHOLECALCIFEROL 1,000 UNIT TABLET PO SCH (08:04)
[2019-10-10 13:35] LABS: Tissue Transglutaminase IgA Ab < 1.2 U/mL
== END 2019-10-10 11:30 | disposition home or self-care (01) | DRG 641 ==
LOC: N.ED 13:54 → N.EDINP 17:37 → N.TELES 18:05
PROVIDERS: ADMIT Hospitalist; ATTEND Hospitalist

== ENCOUNTER 2020-02-26 00:50 | Inpatient (IN) ==
[2020-02-26] MEDS ORDERED: PANTOPRAZOLE INJ 80 MG in SODIUM CHLORIDE 0.9% 100 ML IV ONE (01:22)
[2020-02-26] MEDS ORDERED: ONDANSETRON 4 MG/2 ML VIAL IV ONE (01:22)
[2020-02-26] MEDS ORDERED: SODIUM CHLORIDE 0.9% 1,000 ML IV STA (01:22)
[2020-02-26 01:56] LABS: Albumin 3.3 G/DL (3.4-5.0); Bilirubin,Total 0.4 MG/DL (0.2-1.0); Calcium 8.6 MG/DL (8.5-10.1); Osmolality,Calculated 272.5 MOS/KG (273-304); Total Protein 7.9 G/DL (6.4-8.3)
[2020-02-26 02:01] LABS: Basophils % 0.1 % (0.0-0.8); Hematocrit 24.5 VOL% (35.7-47.0); Hemoglobin 8.4 GM/DL (12.0-16.0); Immature Granulocytes % 3.6 %; Immature Granulocytes Absolute 1.12 #; Lymphocytes # 0.9 10*3/uL (1.4-4.0); Lymphocytes % 2.8 % (21.3-54.2); Mean Corpuscular HGB Conc 34.3 GM/DL (32-36); Mean Corpuscular Volume 88.8 FL (87-102); Mean Platelet Volume 9.4 FL (9.6-12.0); Monocytes % 3.7 % (1.7-12.7); Neutrophils % 89.8 % (38.7-73.9); Platelet Count 457 T/CUMM (130-400); Red Blood Count 2.76 MC/CUMM (3.8-5.5); Red Cell Distribution Width 15.5 % (9.3-17.3); White Blood Count 31.2 T/CUMM (4-12)
[2020-02-26] MEDS ORDERED: PANTOPRAZOLE 40 MG VIAL IV ONE ×2 (02:28)
[2020-02-26 02:29] LABS: Band Neutrophils 3 % (0-10); Lymphocytes 3 % (20-55); PT Patient Result 10.6 SECS (9.8-11.9); Partial Thromboplastin Time 20.5 SECS (23.9-33.8); Platelet Estimate Increased; Segmented Neutrophils 91 % (50-85); Total Cells Counted 100
[2020-02-26 02:30] LABS: Hypochromasia 1+; Target Cells Few
[2020-02-26 03:16] LABS: ABG HCO3 18.6 MMOL/L (20-26); ABG Oxygen Saturation 90.6 % (95-100); ABG PCO2 24.1 MM HG (35-48); ABG PH 7.437 (7.35-7.45); ABG PO2 64.4 MM HG (80-95); ABG TCO2 15.3 MMOL/L (23-27)
[2020-02-26] MEDS ORDERED: MEROPENEM 500 MG in SODIUM CHLORIDE 0.9% 100 ML IV SCH (03:30)
[2020-02-26] MEDS ORDERED: VANCOMYCIN INJ 1,000 MG in SODIUM CHLORIDE 0.9% 250 ML IV ONE (04:00)
[2020-02-26] MEDS ORDERED: GLUCAGON 1 MG VIAL IM PRN (05:17)
[2020-02-26] MEDS ORDERED: NICOTINE 21 MG/24 HR PATCH TRANSDERM PRN (05:17)
[2020-02-26] MEDS ORDERED: DEXTROSE 50% 25 GM/50 ML VIAL IV PRN (05:17)
[2020-02-26 05:38] LABS: Bacteria,Urine Occasional /HPF (Few); Bilirubin,Urine Negative (Negative); Blood, Urine Negative (Negative); Glucose,Urine (UA) Negative (Negative); Hyaline Casts,Urine 2 /LPF (0-3); Ketones,Urine 5 mg/dL (Negative); Nitrite,Urine Negative (Negative); Protein,Urine 30 MG/DL; RBC,Urine 3 /HPF (0-4); Urine Appearance CLOUDY (Clear); Urine Color Yellow (Yellow); Urine Specific Gravity 1.018 (1.001-1.035); Urine Urobilinogen < 2.0 EU/DL (0.2-1.0); WBC,Urine 49 /HPF (0-6)
[2020-02-26] MEDS: PANTOPRAZOLE INJ 200 MG in SODIUM CHLORIDE 0.9% 250 ML IV SCH (06:03)
[2020-02-26] MEDS: SODIUM CHLORIDE 0.9% 1,000 ML IV SCH ×3 (07:00→17:31)
[2020-02-26] MEDS ORDERED: SODIUM CHLORIDE 0.9% 1,000 ML IV PRN (07:48)
[2020-02-26 08:36] LABS: Hemoglobin 5.8 GM/DL (12.0-16.0)
[2020-02-26 08:37] LABS: Hematocrit 17.6 VOL% (35.7-47.0)
[2020-02-26] MEDS ORDERED: LIDOCAINE 2% 5 ML VIAL ONE (10:00)
[2020-02-26] MEDS ORDERED: propofoL 200 MG/20 ML VIAL IV ONE (10:00)
[2020-02-26 13:55] LABS: Basophils % 0.1 % (0.0-0.8); Hematocrit 26.1 VOL% (35.7-47.0); Immature Granulocytes % 0.8 %; Immature Granulocytes Absolute 0.15 #; Lymphocytes # 0.7 10*3/uL (1.4-4.0); Lymphocytes % 3.4 % (21.3-54.2); Mean Corpuscular HGB Conc 34.1 GM/DL (32-36); Mean Corpuscular Volume 91.6 FL (87-102); Mean Platelet Volume 9.1 FL (9.6-12.0); Monocytes % 5.4 % (1.7-12.7); Neutrophils % 90.3 % (38.7-73.9); Platelet Count 245 T/CUMM (130-400); Red Blood Count 2.85 MC/CUMM (3.8-5.5); Red Cell Distribution Width 14.4 % (9.3-17.3); White Blood Count 19.2 T/CUMM (4-12)
[2020-02-26 14:03] LABS: Hemoglobin 8.9 GM/DL (12.0-16.0)
[2020-02-26 14:12] LABS: Bilirubin,Total 0.5 MG/DL (0.2-1.0); Calcium 7.1 MG/DL (8.5-10.1); Osmolality,Calculated 283.4 MOS/KG (273-304); Total Protein 5.2 G/DL (6.4-8.3)
[2020-02-26 15:58] LABS: Lymphocytes 11 % (20-55); Segmented Neutrophils 87 % (50-85); Total Cells Counted 100
[2020-02-26 15:59] LABS: Anisocytosis Slight; Atypical Lymphocytes Few; Platelet Estimate Adequate
[2020-02-26 16:00] LABS: Burr Cells Few; Ovalocytes Few
[2020-02-26] MEDS: VANCOMYCIN 50 MG/ML 60 ML/BOTTLE PO SCH ×3 (17:02→21:54)
[2020-02-27] MEDS: VANCOMYCIN 50 MG/ML 60 ML/BOTTLE PO SCH ×4 (03:28→21:11)
[2020-02-27] MEDS: SODIUM CHLORIDE 0.9% 1,000 ML IV SCH ×3 (03:29→21:43)
[2020-02-27] MEDS ORDERED: VANCOMYCIN INJ 750 MG in SODIUM CHLORIDE 0.9% 250 ML IV PRN (03:30)
[2020-02-27] MEDS: PANTOPRAZOLE INJ 200 MG in SODIUM CHLORIDE 0.9% 250 ML IV SCH (05:00)
[2020-02-27 05:31] LABS: Basophils % 0.1 % (0.0-0.8); Eosinophils % 0.1 % (0.00-10.9); Hematocrit 19.8 VOL% (35.7-47.0); Hemoglobin 6.8 GM/DL (12.0-16.0); Immature Granulocytes % 0.3 %; Immature Granulocytes Absolute 0.04 #; Lymphocytes # 0.8 10*3/uL (1.4-4.0); Lymphocytes % 6.2 % (21.3-54.2); Mean Corpuscular HGB Conc 34.3 GM/DL (32-36); Mean Corpuscular Volume 90.8 FL (87-102); Mean Platelet Volume 9.1 FL (9.6-12.0); Monocytes % 5.5 % (1.7-12.7); Neutrophils % 87.8 % (38.7-73.9); Platelet Count 190 T/CUMM (130-400); Red Blood Count 2.18 MC/CUMM (3.8-5.5); White Blood Count 12.3 T/CUMM (4-12)
[2020-02-27 05:59] LABS: Calcium 6.9 MG/DL (8.5-10.1); Osmolality,Calculated 279.1 MOS/KG (273-304)
[2020-02-27] MEDS ORDERED: SODIUM CHLORIDE 0.9% 1,000 ML IV PRN (07:40)
[2020-02-27] MEDS ORDERED: LACTATED RINGERS 1,000 ML IV SCH (08:00)
[2020-02-27] MEDS ORDERED: HEPARIN/NACL 0.9% 2 UNITS/ML 3,000 ML IV ONE (09:57)
[2020-02-27] MEDS ORDERED: fentaNYL 100 MCG/2 ML VIAL IV ONE (10:04)
[2020-02-27] MEDS ORDERED: MIDAZOLAM 2 MG/2 ML VIAL IV ONE (10:04)
[2020-02-27] MEDS ORDERED: VANCOMYCIN INJ 1,000 MG in SODIUM CHLORIDE 0.9% 250 ML IV ONE (10:30)
[2020-02-27] MEDS: POTASSIUM CHLORIDE 20 MEQ TABLET PO PRN ×2 (13:10→15:04)
[2020-02-27] MEDS ORDERED: POTASSIUM CHLORIDE RIDER 10 MEQ in PREMIX 1 EACH IV PRN (13:36)
[2020-02-27] MEDS ORDERED: NOREPINEPHRINE 4 MG/4 ML VIAL IV ONE (13:44)
[2020-02-27] MEDS ORDERED: SODIUM CHLORIDE 0.9% 1,000 ML IV ONE (13:50)
[2020-02-27] MEDS ORDERED: NOREPINEPHRINE 8 MG in SODIUM CHLORIDE 0.9% 242 ML IV PRN (13:50)
[2020-02-27 14:19] LABS: Hematocrit 23.2 VOL% (35.7-47.0); Hemoglobin 7.7 GM/DL (12.0-16.0)
[2020-02-27] MEDS: MORPHINE 4 MG/1 ML VIAL IV PRN (16:50)
[2020-02-27] MEDS: ONDANSETRON 4 MG/2 ML VIAL IV PRN (17:31)
[2020-02-27 19:14] LABS: Hematocrit 28.9 VOL% (35.7-47.0)
[2020-02-27 23:07] LABS: Hematocrit 26.4 VOL% (35.7-47.0); Hemoglobin 9.4 GM/DL (12.0-16.0)
[2020-02-28] MEDS: SODIUM CHLORIDE 0.9% 1,000 ML IV SCH ×5 (01:30→23:49)
[2020-02-28] MEDS: VANCOMYCIN 50 MG/ML 60 ML/BOTTLE PO SCH ×4 (03:23→23:18)
[2020-02-28 03:46] LABS: Calcium 6.7 MG/DL (8.5-10.1); Osmolality,Calculated 272.8 MOS/KG (273-304)
[2020-02-28 03:59] LABS: Basophils % 0.2 % (0.0-0.8); Eosinophils # 0.1 10*3/uL (0.0-0.87); Eosinophils % 0.5 % (0.00-10.9); Hematocrit 27.1 VOL% (35.7-47.0); Hemoglobin 9.4 GM/DL (12.0-16.0); Immature Granulocytes % 0.9 %; Lymphocytes # 0.7 10*3/uL (1.4-4.0); Lymphocytes % 6.4 % (21.3-54.2); Mean Corpuscular HGB Conc 34.7 GM/DL (32-36); Mean Corpuscular Volume 87.1 FL (87-102); Mean Platelet Volume 9.3 FL (9.6-12.0); Monocytes % 8.2 % (1.7-12.7); Neutrophils % 83.8 % (38.7-73.9); Platelet Count 121 T/CUMM (130-400); Red Blood Count 3.11 MC/CUMM (3.8-5.5); Red Cell Distribution Width 15.3 % (9.3-17.3); White Blood Count 10.8 T/CUMM (4-12)
[2020-02-28] MEDS: POTASSIUM CHLORIDE 20 MEQ TABLET PO PRN ×2 (04:08→06:05)
[2020-02-28] MEDS: PANTOPRAZOLE INJ 200 MG in SODIUM CHLORIDE 0.9% 250 ML IV SCH ×2 (04:08→06:04)
[2020-02-28 07:05] LABS: Hematocrit 26.6 VOL% (35.7-47.0); Hemoglobin 9.4 GM/DL (12.0-16.0)
[2020-02-28] MEDS: MORPHINE 4 MG/1 ML VIAL IV PRN ×2 (07:51→11:27)
[2020-02-28] MEDS: ONDANSETRON 4 MG/2 ML VIAL IV PRN ×2 (07:52→11:26)
[2020-02-28] MEDS: PANTOPRAZOLE 40 MG VIAL IV SCH ×2 (09:10→22:21)
[2020-02-28 11:26] LABS: Hematocrit 26.6 VOL% (35.7-47.0); Hemoglobin 9.3 GM/DL (12.0-16.0)
[2020-02-28] MEDS ORDERED: FOSFOMYCIN 3 GM PACK PO ONE (16:38)
[2020-02-28] MEDS: POTASSIUM CHLORIDE 10 MEQ TABLET PO SCH (22:20)
[2020-02-29] MEDS: SODIUM CHLORIDE 0.9% 1,000 ML IV SCH ×3 (02:20→21:03)
[2020-02-29] MEDS: VANCOMYCIN 50 MG/ML 60 ML/BOTTLE PO SCH ×4 (04:47→22:43)
[2020-02-29 06:39] LABS: Basophils % 0.2 % (0.0-0.8); Eosinophils # 0.1 10*3/uL (0.0-0.87); Hemoglobin 9.2 GM/DL (12.0-16.0); Immature Granulocytes % 1.5 %; Immature Granulocytes Absolute 0.18 #; Lymphocytes # 0.8 10*3/uL (1.4-4.0); Lymphocytes % 6.9 % (21.3-54.2); Mean Corpuscular HGB Conc 34.1 GM/DL (32-36); Mean Corpuscular Volume 89.1 FL (87-102); Mean Platelet Volume 9.6 FL (9.6-12.0); Monocytes % 9.6 % (1.7-12.7); Neutrophils % 80.8 % (38.7-73.9); Platelet Count 156 T/CUMM (130-400); Red Blood Count 3.03 MC/CUMM (3.8-5.5); Red Cell Distribution Width 15.9 % (9.3-17.3); White Blood Count 11.7 T/CUMM (4-12)
[2020-02-29] MEDS: POTASSIUM CHLORIDE 10 MEQ TABLET PO SCH ×3 (08:44→21:04)
[2020-02-29] MEDS: PANTOPRAZOLE 40 MG VIAL IV SCH ×2 (08:44→21:03)
[2020-02-29] MEDS: ACETAMINOPHEN 325 MG TABLET PO PRN ×3 (08:45→21:04)
[2020-02-29 09:39] LABS: Calcium 6.8 MG/DL (8.5-10.1); Osmolality,Calculated 264.2 MOS/KG (273-304)
[2020-03-01] MEDS: VANCOMYCIN 50 MG/ML 60 ML/BOTTLE PO SCH ×2 (04:32→13:01)
[2020-03-01] MEDS: SODIUM CHLORIDE 0.9% 1,000 ML IV SCH ×2 (04:34→04:57)
[2020-03-01 05:32] LABS: Basophils % 0.2 % (0.0-0.8); Eosinophils # 0.1 10*3/uL (0.0-0.87); Eosinophils % 1.2 % (0.00-10.9); Hematocrit 26.8 VOL% (35.7-47.0); Hemoglobin 9.2 GM/DL (12.0-16.0); Immature Granulocytes % 1.6 %; Immature Granulocytes Absolute 0.17 #; Lymphocytes # 0.8 10*3/uL (1.4-4.0); Lymphocytes % 7.6 % (21.3-54.2); Mean Corpuscular HGB Conc 34.3 GM/DL (32-36); Mean Platelet Volume 9.6 FL (9.6-12.0); Monocytes % 10.7 % (1.7-12.7); Neutrophils % 78.7 % (38.7-73.9); Platelet Count 193 T/CUMM (130-400); Red Blood Count 3.01 MC/CUMM (3.8-5.5); Red Cell Distribution Width 16.2 % (9.3-17.3); White Blood Count 10.6 T/CUMM (4-12)
[2020-03-01 05:52] LABS: Calcium 6.9 MG/DL (8.5-10.1); Osmolality,Calculated 271.7 MOS/KG (273-304)
[2020-03-01] MEDS: POTASSIUM CHLORIDE 10 MEQ TABLET PO SCH (08:37)
[2020-03-01] MEDS: POTASSIUM CHLORIDE 20 MEQ TABLET PO PRN (08:38)
[2020-03-01] MEDS: PANTOPRAZOLE 40 MG VIAL IV SCH (08:39)
[2020-03-01] MEDS: ACETAMINOPHEN 325 MG TABLET PO PRN (08:42)
[2020-03-01] MEDS ORDERED: POTASSIUM CHLORIDE 20 MEQ TABLET PO ONE (10:00)
[2020-03-01 11:27] VITALS: BP 133/61
[2020-03-02] MEDS ORDERED: POTASSIUM CHLORIDE 10 MEQ TABLET PO SCH (09:00)
== END 2020-03-01 13:28 | disposition home or self-care (01) | DRG 356 ==
LOC: SUATTDRO → EDBD → EDUNIT# → N.ED 00:50 → N.EDINP 05:17 → N.5E 12:54 → N.ICU 02-27 09:15 → N.3E 02-28 15:49
PROVIDERS: ADMIT Hospitalist; ATTEND Hospitalist

== ENCOUNTER 2020-03-30 21:36 | Inpatient (IN) ==
[2020-03-30] MEDS ORDERED: SODIUM CHLORIDE 0.9% 1,000 ML IV STA (22:53)
[2020-03-30] MEDS ORDERED: PANTOPRAZOLE 40 MG VIAL IV STA (22:53)
[2020-03-30] MEDS ORDERED: ONDANSETRON 4 MG/2 ML VIAL IV STA (22:53)
[2020-03-30 23:19] LABS: Basophils % 0.5 % (0.0-0.8); Eosinophils % 0.4 % (0.00-10.9); Hemoglobin 11.8 GM/DL (12.0-16.0); Immature Granulocytes % 0.4 %; Immature Granulocytes Absolute 0.03 #; Lymphocytes # 1.2 10*3/uL (1.4-4.0); Lymphocytes % 16.1 % (21.3-54.2); Mean Corpuscular HGB Conc 33.7 GM/DL (32-36); Mean Corpuscular Volume 88.6 FL (87-102); Mean Platelet Volume 8.7 FL (9.6-12.0); Monocytes % 6.5 % (1.7-12.7); Neutrophils % 76.1 % (38.7-73.9); Platelet Count 370 T/CUMM (130-400); Red Blood Count 3.95 MC/CUMM (3.8-5.5); Red Cell Distribution Width 15.7 % (9.3-17.3); White Blood Count 7.7 T/CUMM (4-12)
[2020-03-30 23:41] LABS: Bilirubin,Total 0.4 MG/DL (0.2-1.0); Calcium 8.4 MG/DL (8.5-10.1); Osmolality,Calculated 265.4 MOS/KG (273-304); Total Protein 6.8 G/DL (6.4-8.3)
[2020-03-31 01:16] LABS: Bilirubin,Urine Negative (Negative); Blood, Urine Negative (Negative); Glucose,Urine (UA) Negative (Negative); Hyaline Casts,Urine 22 /LPF (0-3); Ketones,Urine 20 mg/dL (Negative); Mucus,Urine Occasional /LPF (Occasional); Nitrite,Urine Negative (Negative); Protein,Urine Negative; RBC,Urine <1 /HPF (0-4); Squamous Epithelial Cell,Urine Occasional /HPF (0-10); Urine Appearance CLEAR (Clear); Urine Color Yellow (Yellow); Urine Specific Gravity 1.027 (1.001-1.035); Urine Urobilinogen < 2.0 EU/DL (0.2-1.0); WBC,Urine 2 /HPF (0-6)
[2020-03-31] MEDS ORDERED: hydrALAZINE 20 MG/1 ML VIAL IV PRN (01:46)
[2020-03-31] MEDS ORDERED: DEXTROSE 50% 25 GM/50 ML VIAL IV PRN (02:02)
[2020-03-31] MEDS ORDERED: ONDANSETRON 4 MG/2 ML VIAL IV PRN (02:02)
[2020-03-31] MEDS ORDERED: GLUCAGON 1 MG VIAL IM PRN (02:02)
[2020-03-31] MEDS: PANTOPRAZOLE INJ 200 MG in SODIUM CHLORIDE 0.9% 250 ML IV SCH (02:03)
[2020-03-31] MEDS: DEXT 5% NACL 0.45% KCL 40 MEQ 40 MEQ/1,000 ML BAG IV SCH ×3 (02:03→21:54)
[2020-03-31] MEDS ORDERED: MAGNESIUM SULF RIDER 2 GM in PREMIX 1 EACH IV ONE (02:12)
[2020-03-31] MEDS ORDERED: SODIUM CHLORIDE 0.9% 1,000 ML IV STA (03:05)
[2020-03-31 04:25] LABS: Ferritin 51.6 ng/ml (8-252); Osmolality,Calculated 267.1 MOS/KG (273-304)
[2020-03-31 06:59] LABS: Calcium 7.6 MG/DL (8.5-10.1); Osmolality,Calculated 264.4 MOS/KG (273-304)
[2020-03-31] MEDS: PYRIDOXINE 100 MG TABLET PO SCH (10:00)
[2020-03-31 10:24] LABS: Basophils % 0.3 % (0.0-0.8); Eosinophils % 0.3 % (0.00-10.9); Hematocrit 30.8 VOL% (35.7-47.0); Immature Granulocytes % 0.5 %; Immature Granulocytes Absolute 0.04 #; Lymphocytes # 0.6 10*3/uL (1.4-4.0); Lymphocytes % 8.1 % (21.3-54.2); Mean Corpuscular HGB Conc 32.5 GM/DL (32-36); Mean Corpuscular Volume 90.1 FL (87-102); Mean Platelet Volume 9.7 FL (9.6-12.0); Monocytes % 3.9 % (1.7-12.7); Neutrophils % 86.9 % (38.7-73.9); Platelet Count 309 T/CUMM (130-400); Red Blood Count 3.42 MC/CUMM (3.8-5.5); Red Cell Distribution Width 16.3 % (9.3-17.3); White Blood Count 7.4 T/CUMM (4-12)
[2020-03-31] MEDS ORDERED: traMADol 50 MG TABLET PO PRN (21:26)
[2020-04-01 06:21] LABS: Basophils % 0.6 % (0.0-0.8); Eosinophils # 0.1 10*3/uL (0.0-0.87); Eosinophils % 1.7 % (0.00-10.9); Hematocrit 31.7 VOL% (35.7-47.0); Hemoglobin 10.3 GM/DL (12.0-16.0); Immature Granulocytes % 0.4 %; Immature Granulocytes Absolute 0.02 #; Lymphocytes # 0.7 10*3/uL (1.4-4.0); Lymphocytes % 13.6 % (21.3-54.2); Mean Corpuscular HGB Conc 32.5 GM/DL (32-36); Mean Corpuscular Volume 92.4 FL (87-102); Mean Platelet Volume 11.1 FL (9.6-12.0); Monocytes % 7.6 % (1.7-12.7); Neutrophils % 76.1 % (38.7-73.9); Platelet Count 213 T/CUMM (130-400); Red Blood Count 3.43 MC/CUMM (3.8-5.5); Red Cell Distribution Width 16.8 % (9.3-17.3); White Blood Count 5.2 T/CUMM (4-12)
[2020-04-01] MEDS: DEXT 5% NACL 0.45% KCL 40 MEQ 40 MEQ/1,000 ML BAG IV SCH (06:34)
[2020-04-01 07:03] LABS: Calcium 7.7 MG/DL (8.5-10.1)
[2020-04-01] MEDS: PANTOPRAZOLE INJ 200 MG in SODIUM CHLORIDE 0.9% 250 ML IV SCH (08:21)
[2020-04-01] MEDS ORDERED: MAGNESIUM SULF RIDER 2 GM in PREMIX 1 EACH IV PRN (08:24)
[2020-04-01] MEDS ORDERED: MAGNESIUM SULF RIDER 4 GM in PREMIX 1 EACH IV PRN (08:24)
[2020-04-01] MEDS: PYRIDOXINE 100 MG TABLET PO SCH (10:25)
[2020-04-01] MEDS ORDERED: LACTATED RINGERS 1,000 ML IV SCH (12:00)
[2020-04-01] MEDS ORDERED: LIDOCAINE 2% 5 ML VIAL ONE (13:18)
[2020-04-01] MEDS ORDERED: propofoL 200 MG/20 ML VIAL IV ONE (13:18)
[2020-04-01 14:16] VITALS: BP 152/95
== END 2020-04-01 15:49 | disposition home or self-care (01) | DRG 378 ==
LOC: N.ED 21:36 → N.EDINP 03-31 02:02 → N.ICU 03-31 03:14 → N.5E 03-31 13:25
PROVIDERS: ADMIT Emergency Medicine; ATTEND Emergency Medicine

== ENCOUNTER 2020-04-19 10:56 | Inpatient (IN) ==
[2020-04-19] MEDS ORDERED: SODIUM CHLORIDE 0.9% 2,000 ML IV STA ×2 (11:25→14:47)
[2020-04-19 11:50] LABS: Basophils % 0.3 % (0.0-0.8); Eosinophils % 0.1 % (0.00-10.9); Hematocrit 33.8 VOL% (35.7-47.0); Hemoglobin 11.5 GM/DL (12.0-16.0); Immature Granulocytes % 1.1 %; Lymphocytes # 0.8 10*3/uL (1.4-4.0); Lymphocytes % 9.1 % (21.3-54.2); Mean Corpuscular Volume 88.5 FL (87-102); Mean Platelet Volume 9.9 FL (9.6-12.0); Neutrophils % 78.4 % (38.7-73.9); Platelet Count 238 T/CUMM (130-400); Red Blood Count 3.82 MC/CUMM (3.8-5.5); Red Cell Distribution Width 18.8 % (9.3-17.3)
[2020-04-19 12:03] LABS: Albumin 2.5 G/DL (3.4-5.0); Bilirubin,Total 0.6 MG/DL (0.2-1.0); Calcium 7.4 MG/DL (8.5-10.1); Osmolality,Calculated 291.7 MOS/KG (273-304)
[2020-04-19 12:12] LABS: ABG Base Excess -19.6 MMOL/L (-2.5-2.5); ABG HCO3 9.9 MMOL/L (20-26); ABG PH 7.225 (7.35-7.45); ABG PO2 84.6 MM HG (80-95); ABG TCO2 6.5 MMOL/L (23-27)
[2020-04-19 12:13] LABS: Bacteria,Urine Occasional /HPF (Few); Blood, Urine Negative (Negative); Glucose,Urine (UA) Negative (Negative); INR 1.1; Ketones,Urine Negative (Negative); Mucus,Urine Occasional /LPF (Occasional); Nitrite,Urine Negative (Negative); PT Patient Result 12.2 SECS (9.8-11.9); Partial Thromboplastin Time 29.4 SECS (23.9-33.8); Protein,Urine 30 MG/DL; RBC,Urine 1 /HPF (0-4); Squamous Epithelial Cell,Urine Occasional /HPF (0-10); Urine Appearance CLEAR (Clear); Urine Color Amber (Yellow); Urine Specific Gravity 1.017 (1.001-1.035); Urine Urobilinogen < 2.0 EU/DL (0.2-1.0); WBC,Urine 1 /HPF (0-6)
[2020-04-19 12:14] LABS: ABG PCO2 16.7 MM HG (35-48)
[2020-04-19 12:16] LABS: Bilirubin,Urine Small mg/dL (Negative)
[2020-04-19 12:32] LABS: Band Neutrophils 16 % (0-10); Lymphocytes 8 % (20-55); Metamyelocytes 1 %; Segmented Neutrophils 70 % (50-85); Total Cells Counted 100
[2020-04-19 12:33] LABS: Hypochromasia 1+; Microcytosis 1+; Ovalocytes Slight; Target Cells Slight
[2020-04-19 12:34] LABS: Platelet Estimate Normal
[2020-04-19] MEDS ORDERED: cefTRIAXone 1,000 MG in SODIUM CHLORIDE 0.9% 100 ML IV STA (12:59)
[2020-04-19] MEDS: POTASSIUM CHLORIDE RIDER 10 MEQ in PREMIX 1 EACH IV SCH ×2 (13:03→14:59)
[2020-04-19] MEDS ORDERED: DEXTROSE 50% 25 GM/50 ML VIAL IV STA (13:34)
[2020-04-19] MEDS ORDERED: DEXTROSE 50% 25 GM/50 ML SYRINGE IV ONE (13:36)
[2020-04-19] MEDS ORDERED: ALBUTEROL 2.5 MG/3 ML NEB RESP TX PRN (17:38)
[2020-04-19] MEDS ORDERED: ONDANSETRON 4 MG/2 ML VIAL IV PRN (17:38)
[2020-04-19] MEDS ORDERED: SODIUM BICARBONATE 50 MEQ/50 ML VIAL IV ONE (17:38)
[2020-04-19] MEDS ORDERED: MAGNESIUM SULF RIDER 4 GM in PREMIX 1 EACH IV PRN (17:48)
[2020-04-19] MEDS ORDERED: MAGNESIUM SULF RIDER 2 GM in PREMIX 1 EACH IV PRN (17:48)
[2020-04-19] MEDS: PANTOPRAZOLE 40 MG VIAL IV SCH (18:31)
[2020-04-19] MEDS: SODIUM BICARB INJ 100 MEQ in DEXTROSE 5% 1,000 ML IV SCH (19:00)
[2020-04-19] MEDS ORDERED: MAGNESIUM SULF RIDER 100 ML IV ONE (19:41)
[2020-04-19] MEDS: HEPARIN 5,000 UNIT/1 ML VIAL SUBCUT SCH (20:48)
[2020-04-19] MEDS: POTASSIUM CHLORIDE RIDER 10 MEQ in PREMIX 1 EACH IV PRN ×2 (22:08→23:13)
[2020-04-20] MEDS: POTASSIUM CHLORIDE RIDER 10 MEQ in PREMIX 1 EACH IV PRN ×7 (00:23→19:21)
[2020-04-20] MEDS ORDERED: POTASSIUM CHLORIDE RIDER 100 ML IV ONE ×2 (02:07→03:15)
[2020-04-20 05:12] LABS: ABG Base Excess -9.5 MMOL/L (-2.5-2.5); ABG HCO3 12.5 MMOL/L (20-26); ABG Oxygen Saturation 96.7 % (95-100); ABG PH 7.447 (7.35-7.45); ABG PO2 89.3 MM HG (80-95); ABG TCO2 13.1 MMOL/L (23-27); Allen Test Positive; Pt O2 Delivery Device Room Air
[2020-04-20 05:13] LABS: ABG PCO2 18.5 MM HG (35-48)
[2020-04-20 05:54] LABS: Basophils # 0.1 10*3/uL (0.0-0.2); Eosinophils % 0.1 % (0.00-10.9); Hematocrit 29.4 VOL% (35.7-47.0); Hemoglobin 10.4 GM/DL (12.0-16.0); Immature Granulocytes Absolute 0.09 #; Lymphocytes # 0.4 10*3/uL (1.4-4.0); Lymphocytes % 4.2 % (21.3-54.2); Mean Corpuscular HGB Conc 35.4 GM/DL (32-36); Mean Corpuscular Volume 84.5 FL (87-102); Mean Platelet Volume 11.2 FL (9.6-12.0); Monocytes % 4.4 % (1.7-12.7); Neutrophils % 89.3 % (38.7-73.9); Platelet Count 214 T/CUMM (130-400); Red Blood Count 3.48 MC/CUMM (3.8-5.5); Red Cell Distribution Width 18.2 % (9.3-17.3); White Blood Count 9.4 T/CUMM (4-12)
[2020-04-20 06:09] LABS: Alanine Aminotransferase < 9 U/L (13-56); Albumin 1.8 G/DL (3.4-5.0); Alkaline Phosphatase 61 U/L (45-117); Aspartate Amino Transferase 16 U/L (0-37); Blood Urea Nitrogen 51 MG/DL (7-18); Calcium 7.3 MG/DL (8.5-10.1); Estimated Glom Filtration Rate 9 ML/MIN; Glucose 142 MG/DL (74-106); Osmolality,Calculated 298.1 MOS/KG (273-304); Total Protein 5.3 G/DL (6.4-8.3)
[2020-04-20] MEDS ORDERED: POTASSIUM CHLORIDE 20 MEQ TABLET PO STA ×2 (06:37)
[2020-04-20] MEDS: SODIUM BICARB INJ 100 MEQ in DEXTROSE 5% 1,000 ML IV SCH (06:44)
[2020-04-20 07:33] LABS: Acanthocytes 1+; Anisocytosis 1+; Band Neutrophils 11 % (0-10); Eosinophils 1 % (0-10); Lymphocytes 6 % (20-55); Macrocytosis 1+; Metamyelocytes 22 %; Platelet Estimate Normal; Segmented Neutrophils 52 % (50-85); Total Cells Counted 100
[2020-04-20] MEDS: HEPARIN 5,000 UNIT/1 ML VIAL SUBCUT SCH (11:34)
[2020-04-20 13:47] LABS: Alanine Aminotransferase 9 U/L (13-56); Albumin 1.9 G/DL (3.4-5.0); Alkaline Phosphatase 68 U/L (45-117); Aspartate Amino Transferase 20 U/L (0-37); Bilirubin,Total < 0.39 MG/DL (0.2-1.0); Blood Urea Nitrogen 50 MG/DL (7-18); Calcium 7.5 MG/DL (8.5-10.1); Estimated Glom Filtration Rate 9 ML/MIN; Glucose 129 MG/DL (74-106); Total Protein 5.6 G/DL (6.4-8.3)
[2020-04-20] MEDS: DEXTROSE 5% IV SCH (17:56)
[2020-04-20] MEDS: SODIUM ACETATE IV SCH (17:56)
[2020-04-20] MEDS: PANTOPRAZOLE 40 MG VIAL IV SCH (18:39)
[2020-04-21] MEDS: LORazepam 1 MG TABLET PO SCH ×2 (00:26→23:02)
[2020-04-21] MEDS: POTASSIUM CHLORIDE RIDER 10 MEQ in PREMIX 1 EACH IV PRN ×8 (04:09→14:57)
[2020-04-21] MEDS: HEPARIN 5,000 UNIT/1 ML VIAL SUBCUT SCH ×2 (04:11→09:29)
[2020-04-21] MEDS: DEXTROSE 5% IV SCH ×2 (04:25→19:29)
[2020-04-21] MEDS: SODIUM ACETATE IV SCH ×2 (04:25→19:29)
[2020-04-21] MEDS: CITALOPRAM 40 MG TABLET PO SCH (09:29)
[2020-04-21 10:02] LABS: Basophils % 0.5 % (0.0-0.8); Eosinophils # 0.1 10*3/uL (0.0-0.87); Eosinophils % 0.8 % (0.00-10.9); Hemoglobin 9.6 GM/DL (12.0-16.0); Immature Granulocytes % 1.7 %; Immature Granulocytes Absolute 0.15 #; Lymphocytes # 0.8 10*3/uL (1.4-4.0); Lymphocytes % 8.5 % (21.3-54.2); Mean Corpuscular HGB Conc 35.6 GM/DL (32-36); Mean Corpuscular Volume 84.4 FL (87-102); Mean Platelet Volume 10.6 FL (9.6-12.0); Monocytes % 5.4 % (1.7-12.7); Neutrophils % 83.1 % (38.7-73.9); Platelet Count 161 T/CUMM (130-400); Red Cell Distribution Width 18.4 % (9.3-17.3); White Blood Count 8.8 T/CUMM (4-12)
[2020-04-21 10:15] LABS: Allen Test Positive; Pt O2 Delivery Device Room Air
[2020-04-21 10:17] LABS: ABG Base Excess -2.7 MMOL/L (-2.5-2.5); ABG HCO3 19.4 MMOL/L (20-26); ABG Oxygen Saturation 95.1 % (95-100); ABG PCO2 25.5 MM HG (35-48); ABG PO2 77.4 MM HG (80-95); ABG TCO2 20.2 MMOL/L (23-27)
[2020-04-21 10:17] LABS: Albumin 1.8 G/DL (3.4-5.0); Bilirubin,Total 0.4 MG/DL (0.2-1.0); Calcium 7.4 MG/DL (8.5-10.1); Osmolality,Calculated 288.3 MOS/KG (273-304); Total Protein 4.9 G/DL (6.4-8.3)
[2020-04-21 11:45] LABS: Band Neutrophils 7 % (0-10); Lymphocytes 6 % (20-55); Metamyelocytes 1 %; Ovalocytes Slight; Platelet Estimate Adequate; Schistocytes Slight; Segmented Neutrophils 74 % (50-85); Total Cells Counted 100
[2020-04-21] MEDS: PANTOPRAZOLE 40 MG VIAL IV SCH (19:29)
[2020-04-21] MEDS: POTASSIUM CHLORIDE IV SCH (19:29)
[2020-04-22] MEDS: HEPARIN 5,000 UNIT/1 ML VIAL SUBCUT SCH ×3 (00:35→21:08)
[2020-04-22] MEDS: POTASSIUM CHLORIDE IV SCH ×3 (00:35→21:08)
[2020-04-22] MEDS: SODIUM ACETATE IV SCH ×3 (00:35→21:08)
[2020-04-22] MEDS: DEXTROSE 5% IV SCH ×3 (00:35→21:08)
[2020-04-22 05:26] LABS: Basophils % 0.2 % (0.0-0.8); Eosinophils % 0.5 % (0.00-10.9); Hematocrit 28.1 VOL% (35.7-47.0); Hemoglobin 9.6 GM/DL (12.0-16.0); Immature Granulocytes Absolute 0.08 #; Lymphocytes # 0.9 10*3/uL (1.4-4.0); Lymphocytes % 11.3 % (21.3-54.2); Mean Corpuscular HGB Conc 34.2 GM/DL (32-36); Mean Corpuscular Volume 87.8 FL (87-102); Mean Platelet Volume 10.8 FL (9.6-12.0); Monocytes % 6.2 % (1.7-12.7); Neutrophils % 80.8 % (38.7-73.9); Platelet Count 163 T/CUMM (130-400); Red Cell Distribution Width 18.7 % (9.3-17.3); White Blood Count 8.1 T/CUMM (4-12)
[2020-04-22 05:54] LABS: Albumin 1.8 G/DL (3.4-5.0); Bilirubin,Total 0.5 MG/DL (0.2-1.0); Calcium 7.3 MG/DL (8.5-10.1); Osmolality,Calculated 280.4 MOS/KG (273-304)
[2020-04-22 06:07] LABS: Band Neutrophils 1 % (0-10); Eosinophils 2 % (0-10); Hypochromasia 1+; Lymphocytes 14 % (20-55); Microcytosis 1+; Segmented Neutrophils 81 % (50-85); Target Cells Slight; Total Cells Counted 100
[2020-04-22 06:08] LABS: Ovalocytes Slight; Platelet Estimate Adequate
[2020-04-22] MEDS: POTASSIUM CHLORIDE RIDER 10 MEQ in PREMIX 1 EACH IV PRN (07:29)
[2020-04-22] MEDS: CITALOPRAM 40 MG TABLET PO SCH (10:08)
[2020-04-22] MEDS ORDERED: CIPROFLOXACIN INJ 400 MG in PREMIX 1 EACH IV ONE (12:30)
[2020-04-22] MEDS: SODIUM CHLORIDE 0.9% 1,000 ML IV SCH (12:40)
[2020-04-22] MEDS ORDERED: LIDOCAINE 2% 5 ML VIAL ONE (13:41)
[2020-04-22] MEDS ORDERED: PHENYLEPHRINE 1 MG/10 ML SYRINGE IV ONE ×2 (13:41→13:52)
[2020-04-22] MEDS ORDERED: propofoL 200 MG/20 ML VIAL IV ONE (13:41)
[2020-04-22] MEDS: PANTOPRAZOLE 40 MG VIAL IV SCH (19:05)
[2020-04-22] MEDS: MAGNESIUM OXIDE 400 MG TABLET PO SCH (21:07)
[2020-04-22] MEDS: LORazepam 1 MG TABLET PO SCH (21:08)
[2020-04-23] MEDS: POTASSIUM CHLORIDE IV SCH (04:30)
[2020-04-23] MEDS: DEXTROSE 5% IV SCH (04:30)
[2020-04-23] MEDS: SODIUM ACETATE IV SCH (04:30)
[2020-04-23 05:51] LABS: Basophils % 0.2 % (0.0-0.8); Eosinophils # 0.1 10*3/uL (0.0-0.87); Hematocrit 25.1 VOL% (35.7-47.0); Hemoglobin 8.6 GM/DL (12.0-16.0); Immature Granulocytes % 1.5 %; Immature Granulocytes Absolute 0.08 #; Lymphocytes # 0.9 10*3/uL (1.4-4.0); Lymphocytes % 16.8 % (21.3-54.2); Mean Corpuscular HGB Conc 34.3 GM/DL (32-36); Mean Corpuscular Volume 87.5 FL (87-102); Mean Platelet Volume 10.8 FL (9.6-12.0); Monocytes % 10.5 % (1.7-12.7); Platelet Count 114 T/CUMM (130-400); Red Blood Count 2.87 MC/CUMM (3.8-5.5); Red Cell Distribution Width 18.4 % (9.3-17.3); White Blood Count 5.2 T/CUMM (4-12)
[2020-04-23 06:11] LABS: Albumin 1.5 G/DL (3.4-5.0); Bilirubin,Total 0.4 MG/DL (0.2-1.0); Calcium 6.5 MG/DL (8.5-10.1); Osmolality,Calculated 274.5 MOS/KG (273-304); Total Protein 4.4 G/DL (6.4-8.3)
[2020-04-23 06:33] LABS: Band Neutrophils 2 % (0-10); Eosinophils 1 % (0-10); Hypochromasia 1+; Lymphocytes 16 % (20-55); Microcytosis 1+; Platelet Estimate Decreased; Segmented Neutrophils 76 % (50-85); Total Cells Counted 100
[2020-04-23] MEDS: MAGNESIUM OXIDE 400 MG TABLET PO SCH ×2 (11:29→21:21)
[2020-04-23] MEDS: HEPARIN 5,000 UNIT/1 ML VIAL SUBCUT SCH ×2 (11:30→21:21)
[2020-04-23] MEDS: MULTIVITAMIN (CENTRUM) TABLET PO SCH (11:30)
[2020-04-23] MEDS: CITALOPRAM 40 MG TABLET PO SCH (11:43)
[2020-04-23] MEDS: SODIUM CHLORIDE 0.9% 1,000 ML IV SCH (11:55)
[2020-04-23] MEDS ORDERED: GLUCAGON 1 MG VIAL IM PRN (15:28)
[2020-04-23] MEDS ORDERED: DEXTROSE 50% 25 GM/50 ML VIAL IV PRN (15:28)
[2020-04-23] MEDS: POTASSIUM CHLORIDE INJ 30 MEQ in DEXTROSE 5% NACL 0.45% 1,000 ML IV SCH (17:41)
[2020-04-23] MEDS: PANTOPRAZOLE 40 MG VIAL IV SCH (17:42)
[2020-04-23] MEDS: LORazepam 1 MG TABLET PO SCH (21:21)
[2020-04-24] MEDS: POTASSIUM CHLORIDE INJ 30 MEQ in DEXTROSE 5% NACL 0.45% 1,000 ML IV SCH (00:12)
[2020-04-24 06:39] LABS: Basophils % 0.2 % (0.0-0.8); Eosinophils # 0.2 10*3/uL (0.0-0.87); Eosinophils % 3.1 % (0.00-10.9); Hematocrit 27.7 VOL% (35.7-47.0); Hemoglobin 9.4 GM/DL (12.0-16.0); Immature Granulocytes % 1.5 %; Immature Granulocytes Absolute 0.07 #; Lymphocytes # 0.9 10*3/uL (1.4-4.0); Lymphocytes % 18.9 % (21.3-54.2); Mean Corpuscular HGB Conc 33.9 GM/DL (32-36); Mean Corpuscular Volume 88.5 FL (87-102); Mean Platelet Volume 10.8 FL (9.6-12.0); Monocytes % 7.1 % (1.7-12.7); Neutrophils % 69.2 % (38.7-73.9); Platelet Count 117 T/CUMM (130-400); Red Blood Count 3.13 MC/CUMM (3.8-5.5); Red Cell Distribution Width 18.3 % (9.3-17.3); White Blood Count 4.8 T/CUMM (4-12)
[2020-04-24 07:14] LABS: Alanine Aminotransferase 12 U/L (13-56); Albumin 1.4 G/DL (3.4-5.0); Alkaline Phosphatase 70 U/L (45-117); Aspartate Amino Transferase 22 U/L (0-37); Bilirubin,Total < 0.39 MG/DL (0.2-1.0); Blood Urea Nitrogen 8 MG/DL (7-18); Calcium 6.7 MG/DL (8.5-10.1); Estimated Glom Filtration Rate 63 ML/MIN; Glucose 76 MG/DL (74-106); Total Protein 4.7 G/DL (6.4-8.3)
[2020-04-24] MEDS ORDERED: THIAMINE 100 MG TABLET PO SCH (09:00)
[2020-04-24] MEDS: MULTIVITAMIN (CENTRUM) TABLET PO SCH (09:19)
[2020-04-24] MEDS: HEPARIN 5,000 UNIT/1 ML VIAL SUBCUT SCH (09:19)
[2020-04-24] MEDS: MAGNESIUM OXIDE 400 MG TABLET PO SCH (09:19)
[2020-04-24] MEDS: CITALOPRAM 40 MG TABLET PO SCH (10:17)
[2020-04-24] MEDS: POTASSIUM CHLORIDE RIDER 10 MEQ in PREMIX 1 EACH IV PRN (10:17)
[2020-04-24 12:22] VITALS: BP 102/62
== END 2020-04-24 14:51 | disposition home health service (06) | DRG 682 ==
LOC: EDUNIT# → N.ED 10:56 → SUATTDRO 17:38 → N.EDINP 17:38 → N.TELEN 04-20 12:43
PROVIDERS: ADMIT Internal Medicine; ATTEND Internal Medicine
PROC: EGDWPEG (ICD-10-PCS; 2020-04-22 13:35)